=== PATIENT | male | born 1945 | race Caucasian/White ===

== ENCOUNTER → 2025-05-28 07:41 | Outpatient (REF) | payer MEDICARE, BC, SELFPAY | LOC: HWRCS 07:41 | PROVIDERS: ATTENDING PHYSICIAN Nurse Practitioner; FAMILY PHYSICIAN Internal Medicine | DX: R06.02 Shortness of breath (principal); R07.89 Other chest pain; I77.810 Thoracic aortic ectasia | CPT/HCPCS: 78452; 93017; A9500; J2785 ==